=== PATIENT | male | born 1985 | race Caucasian/White ===

== ENCOUNTER 2018-12-22 15:33 | Emergency (ER) | payer BC ==
--- NOTE | 2018-12-22 15:48 | Emergency Department Record ---
History of Present Illness - General Chief complaint: Extremity Problem Stated complaint: toe injury Time Seen by Provider: 12/22/18 15:42 Source: Patient Mode of Arrival: Wheelchair Limitations: No limitations - History of Present Illness Initial comments: 33 yo male injured his left foot when his dog pulled him by the dog's leash. He has pain in the mid foot and deformity of the middle toe. The nail is intact. The skin to the foot and toe is intact. He has abrasions to the wrist and knee (L). No other injury. No head injury. He is up to date on immunizations (in the ). MD Complaint: Joint pain, Other -: Minutes(s) Location: Left, Foot -: Yes Arthralgia Radiation: Distal Quality: Aching Consistency: Constant Improves with: Immobilization Worsens with: Weight bearing Associated Symptoms: Denies other symptoms - Related Data Home Medications Medication Instructions Recorded Confirmed Last Taken No Home Med [NO HOME MEDS] 12/22/18 12/22/18 Unknown Allergies Allergy/AdvReac Type Severity Reaction Status Date / Time Penicillins Allergy RASH Verified 12/22/18 15:35 Review of Systems Constitutional: Denies: Chills, Fever, Malaise, Weakness Eyes: Denies: Eye discharge ENT: Denies: Congestion, Throat pain Respiratory: Denies: Cough Cardiovascular: Denies: Chest pain, Syncope Endocrine: Denies: Fatigue Gastrointestinal: Denies: Abdominal pain, Diarrhea, Nausea, Vomiting Genitourinary: Denies: Dysuria, Frequency, Hematuria Musculoskeletal: Reports: As per HPI, Arthralgia Skin: Denies: Bruising, Change in color, Rash Neurological: Denies: Numbness, Weakness Psychiatric: Denies: Anxiety Hematological/Lymphatic: Denies: Easy bleeding, Easy bruising Physical Exam - General General Appearance: Alert, Oriented x3, Cooperative, No acute distress Limitations: No limitations - Head Head exam: Atraumatic, Normal inspection - Eye Eye exam: Normal appearance, PERRL. negative: Conjunctival injection - ENT ENT exam: Normal exam Ear exam: Normal external inspection Nasal Exam: Normal inspection Mouth exam: Normal external inspection - Neck Neck exam: Normal inspection - Respiratory Respiratory exam: Normal lung sounds bilaterally. negative: Respiratory distress - Cardiovascular Peripheral Pulses: 2+: Radial (L) - Rectal Rectal exam: Deferred - exam: Deferred - Extremities Extremities exam: Normal capillary refill, Tenderness. negative: Normal inspection, Calf tenderness, Pedal edema Image of Feet: 1 - deformity of the 2nd toe upward, slight flexion of the middle toe. Svensen and warm. Cap refill intact, Nails intact. - Back Back exam: Reports: Full ROM. Denies: CVA tenderness (R), CVA tenderness (L) - Neurological Neurological exam: Alert, Oriented X3 - Psychiatric Psychiatric exam: Anxious. negative: Agitated - Skin Skin exam: Abrasion (left wrist, right knee) Course - Reevaluation(s) Reevaluation #1: 12/22/18 15:48 Digital Block Betadine Prep Lidocaine plain 4ml 2nd toe The 2nd toe was gently pulled on straightened. The middle toe was palpated and felt dislocated at the DIP. It was straightened with a clinical reduction. Disposition Disposition: Discharge Clinical Impression: Toe fracture, left Qualifiers: Encounter type: initial encounter Toe: lesser toe Fracture type: closed Phalanx: distal Fracture alignment: displaced Qualified Code(s): S92.532A - Displaced fracture of distal phalanx of left lesser toe(s), initial encounter for closed fracture Toe dislocation Qualifiers: Encounter type: initial encounter Laterality: left Qualified Code(s): S93.105A - Unspecified dislocation of left toe(s), initial encounter Disposition: Home, Self-Care Condition: (1) Good Instructions: Toe Fracture (ED) Additional Instructions: Use the post-op shoe and crutches to avoid re-injury and weight bearing Ice to minimize swelling and elevate Call your doctor at the [facility] to be seen by Podiatry or Orthopedics to ensure healing properly Take a copy of your XR with your to your follow up appointment in the next week to 10 days. Forms: Patient Portal Access Time of Disposition: 16:25 Quality - Quality Measures Quality Measures: N/A - Blood Pressure Screening Does Patient Have Any of the Following: No Blood Pressure Classification: Pre-Hypertensive BP Reading Systolic Measurement: 126 Diastolic Measurement: 84 Screening for High Blood Pressure: < Pre-Hypertensive BP, F/U Documented > [G8950] Pre-Hypertensive Follow-up Interventions: Referral to alternative/primary care provider.
[2018-12-22] MEDS ORDERED: IBUPROFEN 600 MG TABLET PO ONE (15:52)
--- NOTE | 2018-12-25 18:06 | RADIOLOGY REPORT ---
EXAM: FOOT, LEFT 3 VIEWS HISTORY: PATIENT JAMMED THE LEFT SECOND TOE ON STAIRS. TECHNIQUE: Three views of the left foot were obtained. COMPARISON: None. FINDINGS: There is a mildly comminuted intra-articular fracture at the base of the second middle phalanx. The fracture involves the lateral and plantar corners of the phalangeal base. There is mild lateral subluxation of the middle phalanx with respect to the proximal phalanx. There is no gross dislocation. There is a tiny calcific density noted at the medial aspect of the third proximal interphalangeal joint. This may be acute or chronic in nature. The remaining osseous and articular structures appear intact. A small plantar calcaneal spur is present. IMPRESSION: 1. MILDLY COMMINUTED AND MINIMALLY DISPLACED INTRA-ARTICULAR FRACTURE INVOLVING THE BASE OF THE SECOND MIDDLE PHALANX WITH MILD LATERAL SUBLUXATION OF THE MIDDLE PHALANX WITH RESPECT TO THE PROXIMAL PHALANX. 2. AGE-INDETERMINATE TINY CALCIFIC DENSITY ALONG THE MEDIAL ASPECT OF THE THIRD PIP JOINT. JOB NUMBER: [id number] MTDD
== END 2018-12-22 16:44 | disposition home or self-care (01) ==
LOC: ER 15:33
DX: S92.522A Displaced fracture of middle phalanx of left lesser toe(s), initial encounter for closed fracture (principal); S93.105A Unspecified dislocation of left toe(s), initial encounter; S80.212A Abrasion, left knee, initial encounter; S60.812A Abrasion of left wrist, initial encounter; X50.0XXA Overexertion from strenuous movement or load, initial encounter; Y93.K1 Activity, walking an animal
CPT/HCPCS: 28660; 99283; 99284